=== PATIENT | female | born 1975 | race Caucasian/White ===

== ENCOUNTER → 2016-11-03 | Outpatient (CLI) | payer BC ==
[~2016-11-03] MED LIST: NO HOME MEDS; PRENATAL VITAMI1 TA5 PO
== END ==
LOC: COL.RAD 07:30
DX: K82.8 Other specified diseases of gallbladder (principal); K76.89 Other specified diseases of liver

== ENCOUNTER → 2017-09-25 | Outpatient (CLI) | payer BC | LOC: MC.RAD 13:40 | DX: Z12.31 Encounter for screening mammogram for malignant neoplasm of breast (principal) ==

== ENCOUNTER 2018-08-26 22:49 | Emergency (ER) | payer BC ==
[~2018-08-26] VITALS: Ht 170.2 cm; Wt 65.9 kg
[2018-08-26 23:06] VITALS: BP 117/66; TEMP 97.3
[2018-08-27] MEDS ORDERED: CLEOCIN HC150 MG/CAP PO (01:09)
[2018-08-27 01:36] VITALS: PULSE 56
== END 2018-08-27 01:36 | disposition home or self-care (01) ==
LOC: COL.ER 22:49
DX: K08.89 Other specified disorders of teeth and supporting structures (principal)

== ENCOUNTER → 2019-11-12 | Outpatient (CLI) | payer BC ==
[~2019-11-12] MED LIST changes: +CLEOCIN HC150 MG/CAP PO
== END ==
LOC: MC.RAD 12:57
DX: Z12.31 Encounter for screening mammogram for malignant neoplasm of breast (principal)

== ENCOUNTER → 2020-11-25 | Outpatient (CLI) | payer BC | LOC: MC.RAD 07:26 | DX: Z12.31 Encounter for screening mammogram for malignant neoplasm of breast (principal) ==